=== PATIENT | female | born 1985 | race Caucasian/White ===

== ENCOUNTER 2024-11-09 12:46 | Emergency (ER) | payer BC ==
[2024-11-09 13:17] LABS: Bilirubin Negative (Negative); Blood, Urine Negative (Negative); Glucose, Urine (Dipstick) Negative (Negative); Ketone, Urine Negative (Negative); Leukocyte Negative (Negative); Nitrite Negative (Negative); Protein, Urine (Dipstick) Negative (Neg-Trace); Urobilinogen 0.2 mg/dL (Less than 2); pH, Urine 5.5 (5.0-9.0)
[2024-11-09 13:18] LABS: Clarity Hazy (Clear)
[2024-11-09 13:23] LABS: CAUTI Indications for Culture Pelvic or flank pain; RBC/HPF 0-3 HPF (0-3); Squamous Epithelial 0-3 HPF (0-3); WBC/HPF 0-3 HPF (0-3)
[2024-11-09 13:24] LABS: Urine Culture Reflex No No
[2024-11-09 13:54] LABS: #Basophils 0.1 thou/uL (0.0-0.2); #Eosinophils 0.2 thou/uL (0.0-0.7); #Lymphocytes 2.5 thou/uL (1.20-3.40); #Monocytes 0.6 thou/uL (0.11-0.59); #Neutrophils 5.1 thou/uL (1.40-6.50); %Basophils 0.7 % (0.0-1.0); %Eosinophils 1.8 % (0.0-10.0); %Lymphocytes 29.5 % (21.0-51.0); %Monocytes 7.2 % (0.0-10.0); %Neutrophils 60.8 % (42.0-75.0); Hematocrit 41.4 % (36.0-47.0); Hemoglobin 13.1 g/dL (12.0-16.0); Mean Corpuscular HGB CONC 31.7 g/dL (32.0-36.0); Mean Corpuscular Volume 88.4 fl (78.0-98.0); Mean Platelet Volume 7.3 fL (7.4-10.4); Platelet Count 341 10x3/uL (130-400); RBC Distribution Width 10.9 % (11.5-14.5); Red Blood Cell (RBC) Count 4.68 mill/uL (4.20-5.40); White Blood Cell (WBC) Count 8.4 10x3/uL (4.8-10.8)
[2024-11-09] MEDS ORDERED: Ketorolac Tromethamine 30 MG (1 mL) VIAL ONE (14:08)
[2024-11-09 14:13] LABS: ALT (SGPT) 34 U/L (8-55); AST (SGOT) 17 U/L (5-34); Albumin 3.5 g/dL (3.5-5.0); Alkaline Phosphatase 82 U/L (40-110); Anion Gap 12 mmol/L (10-20); BUN (Urea Nitrogen) 16 mg/dL (7.0-18.7); Bilirubin, Total 0.8 mg/dL (0.2-1.2); Calc. Creatinine Clearance 0 mL/min (70-130); Calcium 9.4 mg/dL (7.8-10.44); Carbon Dioxide 26 mmol/L (22-29); Chloride 105 mmol/L (98-107); Estimated GFR 91; Globulin 3.5 g/dL (2.4-3.5); Glucose 78 mg/dL (70-105); Lipase 8 U/L (8-78); Potassium 3.7 mmol/L (3.5-5.1); Sodium 139 mmol/L (136-145)
[2024-11-09] MEDS ORDERED: Cyclobenzaprine 10 MG TAB ONE (14:36)
== END 2024-11-09 15:00 | disposition home or self-care (01) ==
LOC: NAV ERS 12:46
DX: R10.11 Right upper quadrant pain (principal)
CPT/HCPCS: 71045; 80053; 81001; 83690; 85025; 96374; J1885